=== PATIENT | male | born 1975 | race African-American/Black ===

== ENCOUNTER 2017-05-28 14:58 | Inpatient (IN) | payer OTHER ==
[2017-05-28 16:53] VITALS: BMI 33.2
--- NOTE | 2017-05-28 20:13 | HP ---
CIWA Score - CIWA Score Nausea/Vomitin Muscle Tremors: 2 Anxiety: 3 Agitation: 1-Slight > Activity Paroxysmal Sweats: 3 Orientation: 0-Oriented Tacttile Disturbances: 0-None Auditory Disturbances: 0-None Visual Disturbances: 2-Mild Sensitivity Headache: 0-None Present CIWA-Ar Total Score: 13 Admission ROS S - [facility] Chief Complaint: WITHDRAWAL SYMPTOMS Allergies/Adverse Reactions: Allergies Allergy/AdvReac Type Severity Reaction Status Date / Time No Known Allergies Allergy Verified 05/28/17 20:10 History of Present Illness: 42 Y.O. MAN WITH A HISTORY OF ALCOHOL DEPENDENCE IS HERE SEEKING DETOX. HE REPORTS HIS LAST ADMISSION TO DETOX WAS IN 2011 AT ANOTHER FACILITY BUT REPORTS HE LEFT AMA. DOES NOT HAVE A SIGNIFICANT PERIOD OF SOBRIETY. Exam Limitations: No Limitations - Ebola screening Have you traveled outside of the country in the last 21 days: No Have you been sick,other than usual withdrawal symptoms: No - Review of Systems Constitutional: Diaphoresis, Changes in sleep EENT: reports: No Symptoms Reported Respiratory: reports: Shortness of Breath Cardiac: reports: No Symptoms Reported GI: reports: Blood Streaked Bowels : reports: No Symptoms Reported Musculoskeletal: reports: No Symptoms Reported Integumentary: reports: No Symptoms Reported Neuro: reports: Tremors Endocrine: reports: No Symptoms Reported Hematology: reports: No Symptoms Reported Psychiatric: reports: Judgement Intact, Mood/Affect Appropiate, Orientated x3, Depressed Other Systems: Reviewed and Negative Patient History - Patient Medical History Hx Anemia: No Hx Asthma: No Hx Chronic Obstructive Pulmonary Disease (COPD): No Hx Cancer: No Hx Cardiac Disorders: No Hx Congestive Heart Failure: No Hx Hypertension: No Hx Hypercholesterolemia: No Hx Pacemaker: No HX Cerebrovascular Accident: No Hx Seizures: No Hx Dementia: No Hx Diabetes: No Hx Gastrointestinal Disorders: No Hx Liver Disease: No Hx Genitourinary Disorders: No Hx Sexually Transmitted Disorders: No Hx Renal Disease (ESRD): No Hx Thyroid Disease: No Hx Human Immunodeficiency Virus (HIV): No Hx Hepatitis C: No Hx Depression: Yes Hx Suicide Attempt: No Hx Bipolar Disorder: No Hx Schizophrenia: No - Patient Surgical History Past Surgical History: No - PPD History Previous Implant?: Yes Documented Results: Negative w/o proof PPD to be Administered?: Yes - Reproductive History Patient is a Female of Child Bearing Age (11 -55 yrs old): No - Smoking Cessation Smoking history: Current every day smoker Have you smoked in the past 12 months: Yes Aproximately how many cigarettes per day: 10 Hx Chewing Tobacco Use: No Initiated information on smoking cessation: Yes 'Breaking Loose' booklet given: 05/28/17 - Substance & Tx. History Hx Alcohol Use: Yes Hx Substance Use: Yes Substance Use Type: Alcohol, Marijuana Hx Substance Use Treatment: Yes (DETOX:2012) - Substances Abused Alcohol Route: Oral Frequency: Daily Amount used: 1-2 PINTS OF LIQUOR Age of first use: 13 Date of Last Use: 05/28/17 Family Disease History - Family Disease History Family Disease History: Diabetes: Mother (ETOH DEPENDENCE), Other: Mother Admission Physical Exam [facility] - Vital Signs Vital Signs: Vital Signs - 24 hr 05/28/17 16:50 Temperature 97.5 F L Pulse Rate 86 Respiratory 18 Rate Blood Pressure 146/82 - Physical General Appearance: Yes: Appropriately Dressed, Anxious HEENTM: Yes: Hearing grossly Normal, Normocephalic, Normal Voice Respiratory: Yes: Chest Non-Tender, Lungs Clear, Normal Breath Sounds, No Respiratory Distress, No Accessory Muscle Use Neck: Yes: No masses,lesions,Nodules, Trachea in good position Breast: Yes: Breast Exam Deferred Cardiology: Yes: Regular Rhythm, Regular Rate Abdominal: Yes: Normal Bowel Sounds, Non Tender, Flat Genitourinary: Yes: Other (NO COMPLAINTS REPORTED) Back: Yes: Normal Inspection Musculoskeletal: Yes: full range of Motion, Gait Steady, Pelvis Stable Extremities: Yes: Normal Inspection, Normal Range of Motion, Non-Tender Neurological: Yes: Fully Oriented, Alert, Motor Strength 5/5, Normal Mood/Affect , Normal Response Integumentary: Yes: Normal Color, Dry, Warm Lymphatic: Yes: Within Normal Limits - Diagnostic (1) Nicotine dependence Current Visit: Yes Status: Chronic (2) BPH (benign prostatic hyperplasia) Current Visit: Yes Status: Chronic (3) Alcohol dependence with uncomplicated withdrawal Current Visit: Yes Status: Chronic (4) Cannabis dependence Current Visit: Yes Status: Chronic Cleared for Admission [facility] - Detox or Rehab [facility] Level of Care: Medically Managed Detox Regimen/Protocol: Librium [facility] Breath Alcohol Content Breath Alcohol Content: 0 Urine Drug Screen - Results Drug Screen Negative: No Urine Drug Screen Results: THC-Marijuana
[2017-05-28] MEDS ORDERED: NICOTINE POLACRILEX 2 MG GUM BC PRN (20:23)
[2017-05-28] MEDS ORDERED: MAG HYDROX/AL HYDROX/SIMETH 30 ML UNIT-DOSE CUP PO PRN (20:23)
[2017-05-28] MEDS ORDERED: ACETAMINOPHEN 325 MG TABLET (FP) PO PRN (20:23)
[2017-05-28] MEDS ORDERED: P-EPHED 60MG/TRIPROLIDI 2.5MG TABLET PO PRN (20:23)
[2017-05-28] MEDS ORDERED: chlordiazePOXIDE HCL 25 MG CAPSULE PO ONE (20:23)
[2017-05-28] MEDS ORDERED: MAGNESIUM CITRATE 300 ML BOTTLE PO PRN (20:23)
[2017-05-28] MEDS ORDERED: chlordiazePOXIDE HCL 25 MG CAPSULE PO PRN (20:23)
[2017-05-28] MEDS ORDERED: IBUPROFEN 400 MG TABLET (FP) PO PRN (20:23)
[2017-05-28] MEDS ORDERED: LOPERAMIDE HCL 2 MG CAPSULE PO PRN (20:23)
[2017-05-28] MEDS ORDERED: MAGNESIUM HYDROX 2400MG/30ML ORAL SUSPENSION 30 ML CUP PO PRN (20:23)
[2017-05-28] MEDS ORDERED: MENTHOL/PHENOL 1 EACH UD MM PRN (20:23)
[2017-05-28] MEDS ORDERED: guaiFENesin/D-METHORPHAN HB 10 ML UNIT-DOSE CUPS PO PRN (20:23)
[2017-05-28] MEDS ORDERED: diphenhydrAMINE HCL 50 MG CAPSULE PO PRN (20:25)
[2017-05-28] MEDS: chlordiazePOXIDE HCL 25 MG CAPSULE PO SCH (21:59)
[2017-05-28] MEDS: THIAMINE HCL 100 MG TABLET (FP) PO SCH (21:59)
[2017-05-28] MEDS: hydrOXYzine PAMOATE 50 MG CAPSULE (FP) PO PRN (22:02)
[2017-05-29 05:05] LABS: URINE APPEARANCE CLOUDY; URINE BILIRUBIN NEGATIVE (NEGATIVE); URINE BLOOD NEGATIVE (NEGATIVE); URINE COLOR YELLOW; URINE GLUCOSE (UA) NEGATIVE (NEGATIVE); URINE KETONE NEGATIVE (NEGATIVE); URINE LEUK ESTERASE NEGATIVE (NEGATIVE); URINE NITRITE POSITIVE (NEGATIVE); URINE PROTEIN NEGATIVE (NEGATIVE); URINE UROBILINOGEN NEGATIVE mg/dL (0.2-1.0)
[2017-05-29 05:26] LABS: URINE BACTERIA RARE /hpf (NONE SEEN); URINE MUCUS FEW
[2017-05-29] MEDS: chlordiazePOXIDE HCL 25 MG CAPSULE PO SCH ×4 (05:37→22:15)
[2017-05-29 10:18] LABS: ALBUMIN 3.6 g/dl (3.4-5.0); ANION GAP 8 (8-16); BLOOD UREA NITROGEN 14 mg/dL (7-18); CALCIUM 8.8 mg/dL (8.5-10.1); CHLORIDE 106 mmol/L (98-107); CO2 29 mmol/L (21-32); GLUCOSE,RANDOM 91 mg/dL (74-106); POTASSIUM 3.7 mmol/L (3.5-5.1); SODIUM 143 mmol/L (136-145)
[2017-05-29 10:20] LABS: ALK PHOS 57 U/L (45-117); BILIRUBIN,TOTAL 0.4 mg/dL (0.2-1.0); CREATININE 1.1 mg/dL (0.7-1.3); SGOT/AST 33 U/L (15-37); SGPT/ALT 48 U/L (12-78); TOT PROT 6.8 g/dl (6.4-8.2)
[2017-05-29 10:34] LABS: HEMATOCRIT 47.2 % (35.4-49); HEMOGLOBIN 15.4 GM/dL (11.7-16.9); MCH 31.6 pg (25.7-33.7); MCHC 32.7 g/dl (32.0-35.9); MEAN CELL VOLUME 96.8 fl (80-96); MEAN PLT VOLUME 9.6 fl (7.5-11.1); PLATELET COUNT 148 K/MM3 (134-434); RBC 4.87 M/mm3 (4.00-5.60); RDW 14.8 % (11.9-15.9); WHITE BLOOD COUNT 4.6 K/mm3 (4.0-10.0)
[2017-05-29] MEDS: NICOTINE 14 MG/24 HOURS TOPICAL PATCH TD SCH (11:09)
[2017-05-29] MEDS: PRENATAL VITAMINS W/ FOLIC ACID TABLET (FP) PO SCH (11:09)
[2017-05-29] MEDS: LEVOFLOXACIN 500 MG TABLET (FP) PO SCH (11:10)
--- NOTE | 2017-05-29 13:43 | PN ---
[facility] CIWA - CIWA Score Nausea/Vomitin-Mild Nausea/No Vomiting Muscle Tremors: 2 Anxiety: 4-Mod. Anxious/Guarded Agitation: 4-Moderately Restless Paroxysmal Sweats: 3 Orientation: 0-Oriented Tacttile Disturbances: 1-Very Mild Itch/Numbness Auditory Disturbances: 0-None Visual Disturbances: 0-None Headache: 0-None Present CIWA-Ar Total Score: 15 BHS Progress Note (SOAP) Subjective: Stomach ache, anxious, nausea, sweating. Patient reports urgency, frequency and burning upon urination but not sure if he still have these symptoms due to his withdrawal symptoms. Objective: 05/29/17 13:33 Last Vital Signs Temp Pulse Resp BP Pulse Ox 99.0 F 85 19 131/88 05/29/17 10:15 05/29/17 10:15 05/29/17 10:15 05/29/17 10:15 Laboratory Tests 05/28/17 05/29/17 05/29/17 06:30 08:00 08:00 WBC 4.6 RBC 4.87 Hgb 15.4 Hct 47.2 MCV 96.8 H MCH 31.6 MCHC 32.7 RDW 14.8 Plt Count 148 MPV 9.6 Sodium 143 Potassium 3.7 Chloride 106 Carbon Dioxide 29 Anion Gap 8 BUN 14 Creatinine 1.1 Creat Clearance w eGFR > 60 Random Glucose 91 Calcium 8.8 Total Bilirubin 0.4 AST 33 ALT 48 Alkaline Phosphatase 57 Total Protein 6.8 Albumin 3.6 Urine Color Yellow Urine Appearance Cloudy Urine pH 7.0 Ur Specific [place] 1.024 Urine Protein Negative Urine Glucose (UA) Negative Urine Ketones Negative Urine Blood Negative Urine Nitrite Positive Urine Bilirubin Negative Urine Urobilinogen Negative Ur Leukocyte Esterase Negative Urine WBC (Auto) None Urine RBC (Auto) 2 Urine Bacteria Rare Urine Mucus Few RPR Titer 05/29/17 08:00 WBC RBC Hgb Hct MCV MCH MCHC RDW Plt Count MPV Sodium Potassium Chloride Carbon Dioxide Anion Gap BUN Creatinine Creat Clearance w eGFR Random Glucose Calcium Total Bilirubin AST ALT Alkaline Phosphatase Total Protein Albumin Urine Color Urine Appearance Urine pH Ur Specific [place] Urine Protein Urine Glucose (UA) Urine Ketones Urine Blood Urine Nitrite Urine Bilirubin Urine Urobilinogen Ur Leukocyte Esterase Urine WBC (Auto) Urine RBC (Auto) Urine Bacteria Urine Mucus RPR Titer Nonreactive Labs noted: UA shows positive nitrite Assessment: 05/29/17 13:34 Withdrawal symptoms Noted with UTI Plan: Continue detox Acute UTI: start levaquin 500mg PO daily x 10 days, encouraged to drink lots of water, follow up with PCP within 1-2 weeks post discharge for further evaluation and possible referral to urologist
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
--- NOTE | 2017-05-29 15:19 | EKG ---
Test Reason : Blood Pressure : / mmHG Vent. Rate : 072 BPM Atrial Rate : 072 BPM P-R Int : 150 ms QRS Dur : 086 ms QT Int : 404 ms P-R-T Axes : 051 057 031 degrees QTc Int : 442 ms NORMAL SINUS RHYTHM NONSPECIFIC ST ABNORMALITY ABNORMAL ECG NO PREVIOUS ECGS AVAILABLE Confirmed by Tanmay Stephenson MD ([id number]) on 05/29/2017 3:18:38 PM Referred By: Confirmed By:Tanmay Stephenson MD
[2017-05-29] MEDS: hydrOXYzine PAMOATE 50 MG CAPSULE (FP) PO PRN (22:15)
[2017-05-29] MEDS: THIAMINE HCL 100 MG TABLET (FP) PO SCH (22:17)
[2017-05-30] MEDS: chlordiazePOXIDE HCL 25 MG CAPSULE PO SCH ×3 (05:46→17:31)
[2017-05-30] MEDS: LEVOFLOXACIN 500 MG TABLET (FP) PO SCH (05:46)
[2017-05-30] MEDS: NICOTINE 14 MG/24 HOURS TOPICAL PATCH TD SCH (10:28)
[2017-05-30] MEDS: PRENATAL VITAMINS W/ FOLIC ACID TABLET (FP) PO SCH (10:28)
--- NOTE | 2017-05-30 13:31 | PN ---
[facility] CIWA - CIWA Score Nausea/Vomitin-No Nausea/No Vomiting Muscle Tremors: 4-Moderate,w/Arms Extend Anxiety: 4-Mod. Anxious/Guarded Agitation: 4-Moderately Restless Paroxysmal Sweats: 1-Minimal Palms Moist Orientation: 0-Oriented Tacttile Disturbances: 3-Moderate Itch/Numb/Burn Auditory Disturbances: 0-None Visual Disturbances: 0-None Headache: 0-None Present CIWA-Ar Total Score: 16 BHS Progress Note (SOAP) Subjective: ANXIETY,SWEATS,NAUSEA,MUSCLE ACHES. Objective: 05/30/17 13:30 Vital Signs Temperature 97.8 F 05/30/17 13:07 Pulse Rate 76 05/30/17 13:07 Respiratory Rate 18 05/30/17 13:07 Blood Pressure 148/96 05/30/17 13:07 O2 Sat by Pulse Oximetry (%) Laboratory Last Values WBC 4.6 K/mm3 (4.0-10.0) 05/29/17 08:00 RBC 4.87 M/mm3 (4.00-5.60) 05/29/17 08:00 Hgb 15.4 GM/dL (11.7-16.9) 05/29/17 08:00 Hct 47.2 % (35.4-49) 05/29/17 08:00 MCV 96.8 fl (80-96) H 05/29/17 08:00 MCH 31.6 pg (25.7-33.7) 05/29/17 08:00 MCHC 32.7 g/dl (32.0-35.9) 05/29/17 08:00 RDW 14.8 % (11.9-15.9) 05/29/17 08:00 Plt Count 148 K/MM3 (134-434) 05/29/17 08:00 MPV 9.6 fl (7.5-11.1) 05/29/17 08:00 Sodium 143 mmol/L (136-145) 05/29/17 08:00 Potassium 3.7 mmol/L (3.5-5.1) 05/29/17 08:00 Chloride 106 mmol/L (98-107) 05/29/17 08:00 Carbon Dioxide 29 mmol/L (21-32) 05/29/17 08:00 Anion Gap 8 (8-16) 05/29/17 08:00 BUN 14 mg/dL (7-18) 05/29/17 08:00 Creatinine 1.1 mg/dL (0.7-1.3) 05/29/17 08:00 Creat Clearance w eGFR > 60 (>60) 05/29/17 08:00 Random Glucose 91 mg/dL (74-106) 05/29/17 08:00 Calcium 8.8 mg/dL (8.5-10.1) 05/29/17 08:00 Total Bilirubin 0.4 mg/dL (0.2-1.0) 05/29/17 08:00 AST 33 U/L (15-37) 05/29/17 08:00 ALT 48 U/L (12-78) 05/29/17 08:00 Alkaline Phosphatase 57 U/L (45-117) 05/29/17 08:00 Total Protein 6.8 g/dl (6.4-8.2) 05/29/17 08:00 Albumin 3.6 g/dl (3.4-5.0) 05/29/17 08:00 Urine Color Yellow 05/28/17 06:30 Urine Appearance Cloudy 05/28/17 06:30 Urine pH 7.0 (5.0-8.0) 05/28/17 06:30 Ur Specific [place] 1.024 (1.001-1.035) 05/28/17 06:30 Urine Protein Negative (NEGATIVE) 05/28/17 06:30 Urine Glucose (UA) Negative (NEGATIVE) 05/28/17 06:30 Urine Ketones Negative (NEGATIVE) 05/28/17 06:30 Urine Blood Negative (NEGATIVE) 05/28/17 06:30 Urine Nitrite Positive (NEGATIVE) 05/28/17 06:30 Urine Bilirubin Negative (NEGATIVE) 05/28/17 06:30 Urine Urobilinogen Negative mg/dL (0.2-1.0) 05/28/17 06:30 Ur Leukocyte Esterase Negative (NEGATIVE) 05/28/17 06:30 Urine WBC (Auto) None /hpf (3-5) 05/28/17 06:30 Urine RBC (Auto) 2 /hpf (0-3) 05/28/17 06:30 Urine Bacteria Rare /hpf (NONE SEEN) 05/28/17 06:30 Urine Mucus Few 05/28/17 06:30 RPR Titer Nonreactive (NONREACTIVE) 05/29/17 08:00 Assessment: 05/30/17 13:31 WITHDRAWAL SX Plan: CONTINUE DETOX
[2017-05-30] MEDS: THIAMINE HCL 100 MG TABLET (FP) PO SCH (22:23)
[2017-05-30] MEDS: hydrOXYzine PAMOATE 50 MG CAPSULE (FP) PO PRN (22:23)
[2017-05-30] MEDS: chlordiazePOXIDE 5 MG CAPSULE PO SCH (22:23)
[2017-05-31] MEDS: chlordiazePOXIDE 5 MG CAPSULE PO SCH ×2 (05:38→10:40)
[2017-05-31] MEDS: LEVOFLOXACIN 500 MG TABLET (FP) PO SCH (05:40)
[2017-05-31] MEDS: NICOTINE 14 MG/24 HOURS TOPICAL PATCH TD SCH (10:40)
[2017-05-31] MEDS: PRENATAL VITAMINS W/ FOLIC ACID TABLET (FP) PO SCH (10:40)
--- NOTE | 2017-05-31 12:18 | PN ---
S Progress Note (SOAP) Subjective: DECREASED ANXIETY,SWEATS,BODY ACHES. Objective: 05/31/17 12:17 Vital Signs Temperature 98.2 F 05/31/17 09:27 Pulse Rate 84 05/31/17 09:27 Respiratory Rate 16 05/31/17 09:27 Blood Pressure 131/89 05/31/17 09:27 O2 Sat by Pulse Oximetry (%) Laboratory Last Values WBC 4.6 K/mm3 (4.0-10.0) 05/29/17 08:00 RBC 4.87 M/mm3 (4.00-5.60) 05/29/17 08:00 Hgb 15.4 GM/dL (11.7-16.9) 05/29/17 08:00 Hct 47.2 % (35.4-49) 05/29/17 08:00 MCV 96.8 fl (80-96) H 05/29/17 08:00 MCH 31.6 pg (25.7-33.7) 05/29/17 08:00 MCHC 32.7 g/dl (32.0-35.9) 05/29/17 08:00 RDW 14.8 % (11.9-15.9) 05/29/17 08:00 Plt Count 148 K/MM3 (134-434) 05/29/17 08:00 MPV 9.6 fl (7.5-11.1) 05/29/17 08:00 Sodium 143 mmol/L (136-145) 05/29/17 08:00 Potassium 3.7 mmol/L (3.5-5.1) 05/29/17 08:00 Chloride 106 mmol/L (98-107) 05/29/17 08:00 Carbon Dioxide 29 mmol/L (21-32) 05/29/17 08:00 Anion Gap 8 (8-16) 05/29/17 08:00 BUN 14 mg/dL (7-18) 05/29/17 08:00 Creatinine 1.1 mg/dL (0.7-1.3) 05/29/17 08:00 Creat Clearance w eGFR > 60 (>60) 05/29/17 08:00 Random Glucose 91 mg/dL (74-106) 05/29/17 08:00 Calcium 8.8 mg/dL (8.5-10.1) 05/29/17 08:00 Total Bilirubin 0.4 mg/dL (0.2-1.0) 05/29/17 08:00 AST 33 U/L (15-37) 05/29/17 08:00 ALT 48 U/L (12-78) 05/29/17 08:00 Alkaline Phosphatase 57 U/L (45-117) 05/29/17 08:00 Total Protein 6.8 g/dl (6.4-8.2) 05/29/17 08:00 Albumin 3.6 g/dl (3.4-5.0) 05/29/17 08:00 Urine Color Yellow 05/28/17 06:30 Urine Appearance Cloudy 05/28/17 06:30 Urine pH 7.0 (5.0-8.0) 05/28/17 06:30 Ur Specific [place] 1.024 (1.001-1.035) 05/28/17 06:30 Urine Protein Negative (NEGATIVE) 05/28/17 06:30 Urine Glucose (UA) Negative (NEGATIVE) 05/28/17 06:30 Urine Ketones Negative (NEGATIVE) 05/28/17 06:30 Urine Blood Negative (NEGATIVE) 05/28/17 06:30 Urine Nitrite Positive (NEGATIVE) 05/28/17 06:30 Urine Bilirubin Negative (NEGATIVE) 05/28/17 06:30 Urine Urobilinogen Negative mg/dL (0.2-1.0) 05/28/17 06:30 Ur Leukocyte Esterase Negative (NEGATIVE) 05/28/17 06:30 Urine WBC (Auto) None /hpf (3-5) 05/28/17 06:30 Urine RBC (Auto) 2 /hpf (0-3) 05/28/17 06:30 Urine Bacteria Rare /hpf (NONE SEEN) 05/28/17 06:30 Urine Mucus Few 05/28/17 06:30 RPR Titer Nonreactive (NONREACTIVE) 05/29/17 08:00 Assessment: 05/31/17 12:17 WITHDRAWAL SX Plan: CONTINUE DETOX
[2017-05-31] MEDS: chlordiazePOXIDE HCL 10 MG CAPSULE PO SCH ×2 (17:49→22:13)
[2017-05-31] MEDS: THIAMINE HCL 100 MG TABLET (FP) PO SCH (22:13)
[2017-05-31] MEDS: hydrOXYzine PAMOATE 50 MG CAPSULE (FP) PO PRN (22:15)
[2017-05-31] MEDS ORDERED: chlordiazePOXIDE HCL 10 MG CAPSULE PO SCH (23:00)
[2017-06-01] MEDS: LEVOFLOXACIN 500 MG TABLET (FP) PO SCH (05:28)
[2017-06-01] MEDS: chlordiazePOXIDE HCL 10 MG CAPSULE PO SCH ×2 (05:28→10:16)
[2017-06-01] MEDS: NICOTINE 14 MG/24 HOURS TOPICAL PATCH TD SCH (09:46)
[2017-06-01] MEDS: PRENATAL VITAMINS W/ FOLIC ACID TABLET (FP) PO SCH (09:46)
[2017-06-01 10:12] VITALS: BP 121/86; PULSE 94; TEMP 97.3
--- NOTE | 2017-06-01 10:45 | DS ---
[facility] Detox Discharge Summary Admission Date: 05/28/17 Discharge Date: 06/01/17 - History Present History: Alcohol Dependence, Cannabis Dependence Additional Comments: DETOX COMPLETED. REFERRED TO [facility] TODAY. Pertinent Past History: HX OF BPH - Physical Exam Results Vital Signs: Vital Signs Temperature 97.3 F L 06/01/17 10:11 Pulse Rate 94 H 06/01/17 10:11 Respiratory Rate 20 06/01/17 10:11 Blood Pressure 121/86 06/01/17 10:11 O2 Sat by Pulse Oximetry (%) Pertinent Admission Physical Exam Findings: WITHDRAWAL SX Laboratory Last Values WBC 4.6 K/mm3 (4.0-10.0) 05/29/17 08:00 RBC 4.87 M/mm3 (4.00-5.60) 05/29/17 08:00 Hgb 15.4 GM/dL (11.7-16.9) 05/29/17 08:00 Hct 47.2 % (35.4-49) 05/29/17 08:00 MCV 96.8 fl (80-96) H 05/29/17 08:00 MCH 31.6 pg (25.7-33.7) 05/29/17 08:00 MCHC 32.7 g/dl (32.0-35.9) 05/29/17 08:00 RDW 14.8 % (11.9-15.9) 05/29/17 08:00 Plt Count 148 K/MM3 (134-434) 05/29/17 08:00 MPV 9.6 fl (7.5-11.1) 05/29/17 08:00 Sodium 143 mmol/L (136-145) 05/29/17 08:00 Potassium 3.7 mmol/L (3.5-5.1) 05/29/17 08:00 Chloride 106 mmol/L (98-107) 05/29/17 08:00 Carbon Dioxide 29 mmol/L (21-32) 05/29/17 08:00 Anion Gap 8 (8-16) 05/29/17 08:00 BUN 14 mg/dL (7-18) 05/29/17 08:00 Creatinine 1.1 mg/dL (0.7-1.3) 05/29/17 08:00 Creat Clearance w eGFR > 60 (>60) 05/29/17 08:00 Random Glucose 91 mg/dL (74-106) 05/29/17 08:00 Calcium 8.8 mg/dL (8.5-10.1) 05/29/17 08:00 Total Bilirubin 0.4 mg/dL (0.2-1.0) 05/29/17 08:00 AST 33 U/L (15-37) 05/29/17 08:00 ALT 48 U/L (12-78) 05/29/17 08:00 Alkaline Phosphatase 57 U/L (45-117) 05/29/17 08:00 Total Protein 6.8 g/dl (6.4-8.2) 05/29/17 08:00 Albumin 3.6 g/dl (3.4-5.0) 05/29/17 08:00 Urine Color Yellow 05/28/17 06:30 Urine Appearance Cloudy 05/28/17 06:30 Urine pH 7.0 (5.0-8.0) 05/28/17 06:30 Ur Specific [place] 1.024 (1.001-1.035) 05/28/17 06:30 Urine Protein Negative (NEGATIVE) 05/28/17 06:30 Urine Glucose (UA) Negative (NEGATIVE) 05/28/17 06:30 Urine Ketones Negative (NEGATIVE) 05/28/17 06:30 Urine Blood Negative (NEGATIVE) 05/28/17 06:30 Urine Nitrite Positive (NEGATIVE) 05/28/17 06:30 Urine Bilirubin Negative (NEGATIVE) 05/28/17 06:30 Urine Urobilinogen Negative mg/dL (0.2-1.0) 05/28/17 06:30 Ur Leukocyte Esterase Negative (NEGATIVE) 05/28/17 06:30 Urine WBC (Auto) None /hpf (3-5) 05/28/17 06:30 Urine RBC (Auto) 2 /hpf (0-3) 05/28/17 06:30 Urine Bacteria Rare /hpf (NONE SEEN) 05/28/17 06:30 Urine Mucus Few 05/28/17 06:30 RPR Titer Nonreactive (NONREACTIVE) 05/29/17 08:00 - Treatment Hospital Course: Detox Protocol Followed, Detoxed Safely, Responded well, Discharged Condition Good, Rehab Referral Accepted ([facility]) Patient has Accepted a Rehab Referral to: [address] - Medication Discharge Medications: Ambulatory Orders NK [No Known Home Medication] 05/28/17 - Diagnosis (1) Alcohol dependence with uncomplicated withdrawal Current Visit: Yes Status: Acute (2) Cannabis dependence Current Visit: Yes Status: Acute (3) Nicotine dependence Current Visit: Yes Status: Acute Qualifiers: Nicotine product type: cigarettes Substance use status: in withdrawal Qualified Code(s): F17.213 - Nicotine dependence, cigarettes, with withdrawal (4) BPH (benign prostatic hyperplasia) Current Visit: Yes Status: Chronic Qualifiers: Lower urinary tract symptom presence: unspecified whether lower urinary tract symptoms present Qualified Code(s): N40.0 - Benign prostatic hyperplasia without lower urinary tract symptoms - AMA Did Patient Leave Against Medical Advice: No
== END 2017-06-01 11:45 | disposition other institution (70) | DRG 775 ==
LOC: YASAS 14:58 → Y3N 21:02
PROVIDERS: ADMIT Internal Medicine; ATTEND Internal Medicine
PROC: HZ2ZZZZ Detoxification Services for Substance Abuse Treatment (ICD-10-PCS; principal; 2017-05-28)
DX: F10.230 Alcohol dependence with withdrawal, uncomplicated (principal); F12.20 Cannabis dependence, uncomplicated; F17.210 Nicotine dependence, cigarettes, uncomplicated; F32.9 Major depressive disorder, single episode, unspecified; N40.0 Benign prostatic hyperplasia without lower urinary tract symptoms
CPT/HCPCS: 36415; 80053; 81003; 81015; 85027; 86593; 87086; 93005; 93010

== ENCOUNTER 2017-06-01 12:31 | Inpatient (IN) | payer OTHER ==
[2017-06-01] MEDS ORDERED: PNEUMOC 13-VAL CONJ-DIP CRM/PF 0.5 ML DISP.SYRIN IM ONE (13:05)
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
[2017-06-01] MEDS ORDERED: LOPERAMIDE HCL 2 MG CAPSULE PO PRN (16:06)
[2017-06-01] MEDS ORDERED: MAGNESIUM HYDROX 2400MG/30ML ORAL SUSPENSION 30 ML CUP PO PRN (16:06)
[2017-06-01] MEDS ORDERED: MAG HYDROX/AL HYDROX/SIMETH 30 ML UNIT-DOSE CUP PO PRN (16:06)
[2017-06-01] MEDS ORDERED: hydrOXYzine PAMOATE 50 MG CAPSULE (FP) PO PRN (16:06)
[2017-06-01] MEDS ORDERED: P-EPHED 60MG/TRIPROLIDI 2.5MG TABLET PO PRN (16:06)
[2017-06-01] MEDS ORDERED: MENTHOL/PHENOL 1 EACH UD MM PRN (16:06)
[2017-06-01] MEDS ORDERED: ACETAMINOPHEN 325 MG TABLET (FP) PO PRN (16:06)
[2017-06-01] MEDS ORDERED: guaiFENesin/D-METHORPHAN HB 10 ML UNIT-DOSE CUPS PO PRN (16:06)
[2017-06-01] MEDS ORDERED: MAGNESIUM CITRATE 300 ML BOTTLE PO PRN (16:06)
[2017-06-01] MEDS ORDERED: IBUPROFEN 400 MG TABLET (FP) PO PRN (16:06)
[2017-06-01] MEDS ORDERED: NICOTINE POLACRILEX 2 MG GUM BUC PRN (16:06)
--- NOTE | 2017-06-01 16:08 | HP ---
[facility] Assess/Revision - Admission History Admitted to Rehab from: [facility] Date of Admission to Rehab: 06/01/17 - Findings Detox History & Physical reviewed: Yes Concur with findings: Yes Comments/Additional Findings: ADMIT TO REHAB
[2017-06-01] MEDS: THIAMINE HCL 100 MG TABLET (FP) PO SCH (21:20)
[2017-06-01] MEDS: hydrOXYzine PAMOATE 50 MG CAPSULE (FP) PO PRN (21:20)
[2017-06-02] MEDS: PRENATAL VITAMINS W/ FOLIC ACID TABLET (FP) PO SCH (09:59)
[2017-06-02] MEDS: NICOTINE 21 MG/24 HOURS TOPICAL PATCH TD SCH (10:00)
[2017-06-02] MEDS: hydrOXYzine PAMOATE 50 MG CAPSULE (FP) PO PRN ×2 (10:05→21:24)
[2017-06-02] MEDS ORDERED: PNEUMOCOCCAL 23 VACCINE 0.5 ML VIAL IM ONE (12:00)
[2017-06-02] MEDS: LEVOFLOXACIN 500 MG TABLET (FP) PO SCH (12:45)
--- NOTE | 2017-06-02 16:05 | PN ---
S Progress Note Note: Vistaril has been discontinued due to possible drug interaction with levaquin. Vistaril can resume after antibiotic completion.
[2017-06-02] MEDS: THIAMINE HCL 100 MG TABLET (FP) PO SCH (21:24)
[2017-06-03] MEDS: LEVOFLOXACIN 500 MG TABLET (FP) PO SCH (06:29)
[2017-06-03] MEDS: PRENATAL VITAMINS W/ FOLIC ACID TABLET (FP) PO SCH (09:49)
[2017-06-03] MEDS: NICOTINE 21 MG/24 HOURS TOPICAL PATCH TD SCH (09:49)
[2017-06-03] MEDS: THIAMINE HCL 100 MG TABLET (FP) PO SCH (21:20)
[2017-06-03] MEDS: hydrOXYzine PAMOATE 50 MG CAPSULE (FP) PO PRN (21:20)
[2017-06-04] MEDS: LEVOFLOXACIN 500 MG TABLET (FP) PO SCH (06:14)
[2017-06-04] MEDS: NICOTINE 21 MG/24 HOURS TOPICAL PATCH TD SCH (09:41)
[2017-06-04] MEDS: PRENATAL VITAMINS W/ FOLIC ACID TABLET (FP) PO SCH (09:41)
[2017-06-05] MEDS: LEVOFLOXACIN 500 MG TABLET (FP) PO SCH (06:06)
[2017-06-05] MEDS: PRENATAL VITAMINS W/ FOLIC ACID TABLET (FP) PO SCH (10:06)
[2017-06-05] MEDS: NICOTINE 21 MG/24 HOURS TOPICAL PATCH TD SCH (10:07)
[2017-06-05] MEDS: TOLNAFTATE 1% CREAM 15 GM TUBE TP SCH ×3 (10:07→21:42)
[2017-06-05] MEDS: hydrOXYzine PAMOATE 50 MG CAPSULE (FP) PO PRN ×2 (12:00→21:43)
[2017-06-05] MEDS: THIAMINE HCL 100 MG TABLET (FP) PO SCH ×2 (18:40→21:43)
[2017-06-06] MEDS: LEVOFLOXACIN 500 MG TABLET (FP) PO SCH (06:19)
[2017-06-06] MEDS: TOLNAFTATE 1% CREAM 15 GM TUBE TP SCH (09:53)
[2017-06-06] MEDS: NICOTINE 21 MG/24 HOURS TOPICAL PATCH TD SCH (09:53)
[2017-06-06] MEDS: PRENATAL VITAMINS W/ FOLIC ACID TABLET (FP) PO SCH (09:53)
--- NOTE | 2017-06-06 13:42 | PN ---
[facility] Progress Note (SOAP) Subjective: c/o hematuria , h/o bph Objective: 06/06/17 13:39 pt 06/06/17 13:42 see labs Assessment: 06/06/17 13:39 h/o bph , started flomax in [facility] ,stopped flomax when he began drinking. Emile now resume 06/06/17 13:40 Plan: cont levofloxin start flomax 0.4 mg repeat u/a hold vistaril
[2017-06-06] MEDS: hydrOXYzine PAMOATE 50 MG CAPSULE (FP) PO PRN (22:11)
[2017-06-06] MEDS: THIAMINE HCL 100 MG TABLET (FP) PO SCH (22:11)
[2017-06-07] MEDS: TOLNAFTATE 1% CREAM 15 GM TUBE TP SCH ×3 (01:17→22:58)
[2017-06-07] MEDS: LEVOFLOXACIN 500 MG TABLET (FP) PO SCH (06:18)
[2017-06-07] MEDS: TAMSULOSIN HCL 0.4 MG CAP.ER.24H (FP) PO SCH (09:08)
[2017-06-07] MEDS: NICOTINE 21 MG/24 HOURS TOPICAL PATCH TD SCH (10:09)
[2017-06-07] MEDS: PRENATAL VITAMINS W/ FOLIC ACID TABLET (FP) PO SCH (10:09)
[2017-06-07 10:37] LABS: URINE APPEARANCE CLEAR; URINE BILIRUBIN NEGATIVE (NEGATIVE); URINE BLOOD NEGATIVE (NEGATIVE); URINE COLOR STRAW; URINE GLUCOSE (UA) NEGATIVE (NEGATIVE); URINE KETONE NEGATIVE (NEGATIVE); URINE LEUK ESTERASE NEGATIVE (NEGATIVE); URINE NITRITE NEGATIVE (NEGATIVE); URINE PROTEIN NEGATIVE (NEGATIVE); URINE UROBILINOGEN NEGATIVE mg/dL (0.2-1.0)
[2017-06-07] MEDS: hydrOXYzine PAMOATE 50 MG CAPSULE (FP) PO PRN ×2 (16:52→22:07)
[2017-06-07] MEDS: THIAMINE HCL 100 MG TABLET (FP) PO SCH (22:05)
[2017-06-08] MEDS: LEVOFLOXACIN 500 MG TABLET (FP) PO SCH (06:37)
[2017-06-08] MEDS: TAMSULOSIN HCL 0.4 MG CAP.ER.24H (FP) PO SCH (08:44)
[2017-06-08] MEDS: PRENATAL VITAMINS W/ FOLIC ACID TABLET (FP) PO SCH (10:19)
[2017-06-08] MEDS: NICOTINE 21 MG/24 HOURS TOPICAL PATCH TD SCH (10:19)
[2017-06-08] MEDS: TOLNAFTATE 1% CREAM 15 GM TUBE TP SCH ×2 (10:19→21:50)
[2017-06-08] MEDS: hydrOXYzine PAMOATE 50 MG CAPSULE (FP) PO PRN (21:50)
[2017-06-08] MEDS: THIAMINE HCL 100 MG TABLET (FP) PO SCH (21:50)
[2017-06-09] MEDS: LEVOFLOXACIN 500 MG TABLET (FP) PO SCH (06:10)
[2017-06-09] MEDS: TAMSULOSIN HCL 0.4 MG CAP.ER.24H (FP) PO SCH (08:27)
[2017-06-09] MEDS: PRENATAL VITAMINS W/ FOLIC ACID TABLET (FP) PO SCH (10:08)
[2017-06-09] MEDS: TOLNAFTATE 1% CREAM 15 GM TUBE TP SCH ×2 (10:08→21:32)
[2017-06-09] MEDS: NICOTINE 21 MG/24 HOURS TOPICAL PATCH TD SCH (10:08)
[2017-06-09] MEDS: THIAMINE HCL 100 MG TABLET (FP) PO SCH (21:32)
[2017-06-09] MEDS: hydrOXYzine PAMOATE 50 MG CAPSULE (FP) PO PRN (21:32)
[2017-06-10] MEDS: TAMSULOSIN HCL 0.4 MG CAP.ER.24H (FP) PO SCH (07:57)
[2017-06-10] MEDS: TOLNAFTATE 1% CREAM 15 GM TUBE TP SCH ×2 (10:00→21:58)
[2017-06-10] MEDS: PRENATAL VITAMINS W/ FOLIC ACID TABLET (FP) PO SCH (10:00)
[2017-06-10] MEDS: NICOTINE 21 MG/24 HOURS TOPICAL PATCH TD SCH (10:00)
[2017-06-10] MEDS: THIAMINE HCL 100 MG TABLET (FP) PO SCH (21:57)
[2017-06-10] MEDS: hydrOXYzine PAMOATE 50 MG CAPSULE (FP) PO PRN (21:57)
[2017-06-11] MEDS: TAMSULOSIN HCL 0.4 MG CAP.ER.24H (FP) PO SCH (06:05)
[2017-06-11] MEDS: TOLNAFTATE 1% CREAM 15 GM TUBE TP SCH ×2 (09:50→21:55)
[2017-06-11] MEDS: NICOTINE 21 MG/24 HOURS TOPICAL PATCH TD SCH (09:50)
[2017-06-11] MEDS: PRENATAL VITAMINS W/ FOLIC ACID TABLET (FP) PO SCH (09:50)
[2017-06-11] MEDS: THIAMINE HCL 100 MG TABLET (FP) PO SCH (21:54)
[2017-06-11] MEDS: hydrOXYzine PAMOATE 50 MG CAPSULE (FP) PO PRN (21:54)
[2017-06-12] MEDS: TAMSULOSIN HCL 0.4 MG CAP.ER.24H (FP) PO SCH (06:24)
--- NOTE | 2017-06-12 09:47 | PN ---
Psychiatric Progress Note Vital Signs: Vital Signs Period Temp Pulse Resp BP Sys/Deleon Pulse Ox Last 24 Hr 97.4 F 82 18-20 109/74 Date of Session: 06/12/17 Chief Complaint:: Insomnia HPI: Patient addressing Alcohol and Cannabis Dependence comorbid with Nicotine Dependence, Substance-induced Anxiety Disorder and Substance-induced Sleep Disorder ROS: Start Belsomra 10 mg po HS prn for insomnia Current Medications: Active Medications Generic Name Dose Route Start Last Admin Trade Name Freq PRN Reason Stop Dose Admin Acetaminophen 650 mg 06/01/17 16:06 Tylenol - PO Q4H PRN FEVER Al Hydroxide/Mg Hydroxide 30 ml 06/01/17 16:06 Mylanta Oral Suspension - PO Q6H PRN DYSPEPSIA Eucalyptus/Menthol/Phenol/Sorbitol 1 each 06/01/17 16:06 Cepastat Lozenge - MM Q4H PRN SORE THROAT Guaifenesin 10 ml 06/01/17 16:06 Robitussin Dm - PO Q6H PRN COUGH Hydroxyzine Pamoate 50 mg 06/01/17 13:57 06/11/17 21:54 Vistaril - PO 50 mg Q4H PRN Administration ANXIETY Ibuprofen 400 mg 06/01/17 16:06 Motrin - PO Q6H PRN Pain Level 4-6 Loperamide HCl 4 mg 06/01/17 16:06 Imodium - PO Q6H PRN DIARRHEA Magnesium Citrate 300 ml 06/01/17 16:06 Citroma - PO Q48H PRN CONSTIPATION Magnesium Hydroxide 30 ml 06/01/17 16:06 Milk Of Magnesia - PO DAILY PRN CONSTIPATION Nicotine 21 mg 06/02/17 10:00 06/11/17 09:50 Nicoderm Patch - TD Not Given DAILY TIAN Nicotine Polacrilex 2 mg 06/01/17 16:06 Nicorette Gum - BUC Q2H PRN NICOTINE REPLACEMENT RX Multivit/Folic Acid/Iron 1 tab 06/02/17 10:00 06/11/17 09:50 Vitamins (Sjr) - PO 1 tab DAILY TIAN Administration Pseudoephedrine/Triprolidine 1 combo 06/01/17 16:06 Actifed - PO TID PRN NASAL CONGESTION Tamsulosin HCl 0.4 mg 06/10/17 07:30 06/12/17 06:24 Flomax - PO 0.4 mg DAILY@0600 TIAN Administration Thiamine HCl 100 mg 06/01/17 22:00 06/11/17 21:54 Vitamin B1 - PO 100 mg HS TIAN Administration Tolnaftate 1 applic 06/04/17 22:00 06/11/17 21:55 Tinactin 1% Cream - TP 1 applic BID TIAN Administration Current Side Effect: No Lab tests ordered: Yes Lab tests reviewed: Yes Provider note:: Patient reports experiencing difficulty to sleep. Told keno writer/runner that he has been sleeping poorly despite taking Vistaril 50 mg at bedtime. Requests to try another medication. Hypnotic properties as well as adverse- effects of Belsomra discussed with patient and he agreed to try it Total face to face time:: 15 Mental Status Exam - Mental Status Exam Alert and Oriented to: Time, Place, Person Cognitive Function: Fair Patient Appearance: Well Groomed Mood: Hopeful, Euthymic Affect: Appropriate Patient Behavior: Cooperative Speech Pattern: Clear Voice Loudness: Normal Thought Process: Intact, Goal Oriented Thought Disorder: Not Present Hallucinations: Denies Suicidal Ideation: Denies Homicidal Ideation: Denies Insight/Judgement: Fair Sleep: Poorly Appetite: Good Muscle strength/Tone: Normal Gait/Station: Normal Psychiatric Treatment Plan - Problem List (1) Alcohol dependence Current Visit: Yes (2) Cannabis dependence Current Visit: No (3) Nicotine dependence Current Visit: No Qualifiers: Nicotine product type: cigarettes Substance use status: in withdrawal Qualified Code(s): F17.213 - Nicotine dependence, cigarettes, with withdrawal (4) Substance-induced anxiety disorder Current Visit: Yes (5) Substance-induced sleep disorder Current Visit: Yes (6) BPH (benign prostatic hyperplasia) Current Visit: No Qualifiers: Lower urinary tract symptom presence: unspecified whether lower urinary tract symptoms present Qualified Code(s): N40.0 - Benign prostatic hyperplasia without lower urinary tract symptoms Initial treatment plan: 1) Start Belsomra 10 mg po HS prn for insomnia. 2) Monitor progress
[2017-06-12] MEDS: PRENATAL VITAMINS W/ FOLIC ACID TABLET (FP) PO SCH (10:07)
[2017-06-12] MEDS: NICOTINE 21 MG/24 HOURS TOPICAL PATCH TD SCH (10:07)
[2017-06-12] MEDS: TOLNAFTATE 1% CREAM 15 GM TUBE TP SCH ×2 (10:07→22:08)
[2017-06-12] MEDS: THIAMINE HCL 100 MG TABLET (FP) PO SCH (22:07)
[2017-06-12] MEDS: SUVOREXANT 10 MG TABLET PO PRN (22:08)
[2017-06-13] MEDS: TAMSULOSIN HCL 0.4 MG CAP.ER.24H (FP) PO SCH (06:15)
--- NOTE | 2017-06-13 06:38 | PN ---
Psychiatric Progress Note Vital Signs: Vital Signs Period Temp Pulse Resp BP Sys/Deleon Pulse Ox Last 24 Hr 97.4 F 82 18-20 109/74 Date of Session: 06/13/17 Chief Complaint:: Discharge Note HPI: Patient addressing Alcohol and Cannabis Dependence comorbid with Nicotine Dependence, Substance-induced Anxiety Disorder and Substance-induced Sleep Disorder ROS: BPH Current Medications: Active Medications Generic Name Dose Route Start Last Admin Trade Name Freq PRN Reason Stop Dose Admin Acetaminophen 650 mg 06/01/17 16:06 Tylenol - PO Q4H PRN FEVER Al Hydroxide/Mg Hydroxide 30 ml 06/01/17 16:06 Mylanta Oral Suspension - PO Q6H PRN DYSPEPSIA Eucalyptus/Menthol/Phenol/Sorbitol 1 each 06/01/17 16:06 Cepastat Lozenge - MM Q4H PRN SORE THROAT Guaifenesin 10 ml 06/01/17 16:06 Robitussin Dm - PO Q6H PRN COUGH Hydroxyzine Pamoate 50 mg 06/01/17 13:57 06/11/17 21:54 Vistaril - PO 50 mg Q4H PRN Administration ANXIETY Ibuprofen 400 mg 06/01/17 16:06 Motrin - PO Q6H PRN Pain Level 4-6 Loperamide HCl 4 mg 06/01/17 16:06 Imodium - PO Q6H PRN DIARRHEA Magnesium Citrate 300 ml 06/01/17 16:06 Citroma - PO Q48H PRN CONSTIPATION Magnesium Hydroxide 30 ml 06/01/17 16:06 Milk Of Magnesia - PO DAILY PRN CONSTIPATION Nicotine 21 mg 06/02/17 10:00 06/12/17 10:07 Nicoderm Patch - TD Not Given DAILY TIAN Nicotine Polacrilex 2 mg 06/01/17 16:06 Nicorette Gum - BUC Q2H PRN NICOTINE REPLACEMENT RX Multivit/Folic Acid/Iron 1 tab 06/02/17 10:00 06/12/17 10:07 Vitamins (Sjr) - PO 1 tab DAILY TIAN Administration Pseudoephedrine/Triprolidine 1 combo 06/01/17 16:06 Actifed - PO TID PRN NASAL CONGESTION Tamsulosin HCl 0.4 mg 06/10/17 07:30 06/13/17 06:15 Flomax - PO 0.4 mg DAILY@0600 TIAN Administration Thiamine HCl 100 mg 06/01/17 22:00 06/12/17 22:07 Vitamin B1 - PO 100 mg HS TIAN Administration Tolnaftate 1 applic 06/04/17 22:00 06/12/17 22:08 Tinactin 1% Cream - TP Not Given BID TIAN Current Side Effect: No Lab tests ordered: Yes Lab tests reviewed: Yes Provider note:: Patient will complete this program on 06/14/17. He has met his treatment goals and will continue to address his issues in outpatient [place] [facility] [place] He responded well to Belsomra prn for insomnia and Vistaril prn for anxiety. He is stable for discharge on 06/14/17 Total face to face time:: 35 Mental Status Exam - Mental Status Exam Alert and Oriented to: Time, Place, Person Cognitive Function: Fair Patient Appearance: Well Groomed Mood: Hopeful, Euthymic Affect: Appropriate Patient Behavior: Cooperative Speech Pattern: Clear Voice Loudness: Normal Thought Process: Intact, Goal Oriented Thought Disorder: Not Present Hallucinations: Denies Suicidal Ideation: Denies Homicidal Ideation: Denies Insight/Judgement: Fair Sleep: Fair Appetite: Good Muscle strength/Tone: Normal Gait/Station: Normal Psychiatric Treatment Plan - Problem List (1) Alcohol dependence Current Visit: Yes (2) Cannabis dependence Current Visit: No (3) Nicotine dependence Current Visit: No Qualifiers: Nicotine product type: cigarettes Substance use status: in withdrawal Qualified Code(s): F17.213 - Nicotine dependence, cigarettes, with withdrawal (4) Substance-induced anxiety disorder Current Visit: Yes (5) Substance-induced sleep disorder Current Visit: Yes (6) BPH (benign prostatic hyperplasia) Current Visit: No Qualifiers: Lower urinary tract symptom presence: unspecified whether lower urinary tract symptoms present Qualified Code(s): N40.0 - Benign prostatic hyperplasia without lower urinary tract symptoms Initial treatment plan: Patient will be discharged tomorrow and referred to the [facility] [place] treatment
[2017-06-13] MEDS: PRENATAL VITAMINS W/ FOLIC ACID TABLET (FP) PO SCH (10:06)
[2017-06-13] MEDS: NICOTINE 21 MG/24 HOURS TOPICAL PATCH TD SCH (10:07)
[2017-06-13] MEDS: TOLNAFTATE 1% CREAM 15 GM TUBE TP SCH ×2 (10:07→21:42)
[2017-06-13] MEDS: THIAMINE HCL 100 MG TABLET (FP) PO SCH (21:40)
[2017-06-13] MEDS: SUVOREXANT 10 MG TABLET PO PRN (21:41)
[2017-06-14] MEDS: TAMSULOSIN HCL 0.4 MG CAP.ER.24H (FP) PO SCH (06:19)
[2017-06-14] MEDS: PRENATAL VITAMINS W/ FOLIC ACID TABLET (FP) PO SCH (10:00)
[2017-06-14] MEDS: TOLNAFTATE 1% CREAM 15 GM TUBE TP SCH ×2 (10:01→22:18)
[2017-06-14] MEDS: NICOTINE 21 MG/24 HOURS TOPICAL PATCH TD SCH (10:01)
--- NOTE | 2017-06-14 10:49 | PN ---
Psychiatric Progress Note Vital Signs: Vital Signs Period Temp Pulse Resp BP Sys/Deleon Pulse Ox Last 24 Hr 98.0 F 84 18-20 126/73 Date of Session: 06/14/17 Chief Complaint:: Discharge Note HPI: Patient addressing Alcohol and Cannabis Dependence comorbid with Nicotine Dependence, Substance-induced Anxiety Disorder and Substance-induced Sleep Disorder ROS: BPH Current Medications: Active Medications Generic Name Dose Route Start Last Admin Trade Name Freq PRN Reason Stop Dose Admin Acetaminophen 650 mg 06/01/17 16:06 Tylenol - PO Q4H PRN FEVER Al Hydroxide/Mg Hydroxide 30 ml 06/01/17 16:06 Mylanta Oral Suspension - PO Q6H PRN DYSPEPSIA Eucalyptus/Menthol/Phenol/Sorbitol 1 each 06/01/17 16:06 Cepastat Lozenge - MM Q4H PRN SORE THROAT Guaifenesin 10 ml 06/01/17 16:06 Robitussin Dm - PO Q6H PRN COUGH Hydroxyzine Pamoate 50 mg 06/01/17 13:57 06/11/17 21:54 Vistaril - PO 50 mg Q4H PRN Administration ANXIETY Ibuprofen 400 mg 06/01/17 16:06 Motrin - PO Q6H PRN Pain Level 4-6 Loperamide HCl 4 mg 06/01/17 16:06 Imodium - PO Q6H PRN DIARRHEA Magnesium Citrate 300 ml 06/01/17 16:06 Citroma - PO Q48H PRN CONSTIPATION Magnesium Hydroxide 30 ml 06/01/17 16:06 Milk Of Magnesia - PO DAILY PRN CONSTIPATION Nicotine 21 mg 06/02/17 10:00 06/14/17 10:01 Nicoderm Patch - TD Not Given DAILY TIAN Nicotine Polacrilex 2 mg 06/01/17 16:06 Nicorette Gum - BUC Q2H PRN NICOTINE REPLACEMENT RX Multivit/Folic Acid/Iron 1 tab 06/02/17 10:00 06/14/17 10:00 Vitamins (Sjr) - PO 1 tab DAILY TIAN Administration Pseudoephedrine/Triprolidine 1 combo 06/01/17 16:06 Actifed - PO TID PRN NASAL CONGESTION Tamsulosin HCl 0.4 mg 06/10/17 07:30 06/14/17 06:19 Flomax - PO 0.4 mg DAILY@0600 TIAN Administration Thiamine HCl 100 mg 06/01/17 22:00 06/13/17 21:40 Vitamin B1 - PO 100 mg HS TIAN Administration Tolnaftate 1 applic 06/04/17 22:00 06/14/17 10:01 Tinactin 1% Cream - TP Not Given BID TIAN Current Side Effect: No Lab tests ordered: Yes Lab tests reviewed: Yes Provider note:: Patient will complete this program on 06/15/17. He has met his treatment goals and will continue to address his issues in outpatient treatment at the [facility] [place]. Told Venetian Blind Cleaner that from his participation in this program, he has learned to identify his triggers and healthy ways to manage them.He responded well to Belsomra prn for insomnia and Vistaril prn for anxiety. He is stable for discharge on 06/15/17 Total face to face time:: 35 Mental Status Exam - Mental Status Exam Alert and Oriented to: Time, Place, Person Cognitive Function: Fair Patient Appearance: Well Groomed Mood: Hopeful, Euthymic Affect: Appropriate Patient Behavior: Cooperative Speech Pattern: Clear Voice Loudness: Normal, Limited Variation Thought Process: Intact Thought Disorder: Not Present Hallucinations: Denies Suicidal Ideation: Denies Homicidal Ideation: Denies Insight/Judgement: Fair Sleep: Fair Appetite: Good Muscle strength/Tone: Normal Gait/Station: Normal Psychiatric Treatment Plan - Problem List (1) Alcohol dependence Current Visit: Yes (2) Cannabis dependence Current Visit: No (3) Nicotine dependence Current Visit: No Qualifiers: Nicotine product type: cigarettes Substance use status: in withdrawal Qualified Code(s): F17.213 - Nicotine dependence, cigarettes, with withdrawal (4) Substance-induced anxiety disorder Current Visit: Yes (5) Substance-induced sleep disorder Current Visit: Yes (6) BPH (benign prostatic hyperplasia) Current Visit: No Qualifiers: Lower urinary tract symptom presence: unspecified whether lower urinary tract symptoms present Qualified Code(s): N40.0 - Benign prostatic hyperplasia without lower urinary tract symptoms Initial treatment plan: Patient will be discharged tomorrow and referred to the [facility] [place] for [place]
[2017-06-14] MEDS: THIAMINE HCL 100 MG TABLET (FP) PO SCH (21:41)
[2017-06-14] MEDS: SUVOREXANT 10 MG TABLET PO PRN (21:41)
[2017-06-15] MEDS: TAMSULOSIN HCL 0.4 MG CAP.ER.24H (FP) PO SCH (05:59)
[2017-06-15 06:57] VITALS: BP 132/85; PULSE 93; TEMP 98.1
== END 2017-06-15 09:35 | disposition home or self-care (01) | DRG 772 ==
LOC: YASAS 12:31 → Y3W 12:32
PROVIDERS: ADMIT Psychiatry & Neurology Psychiatry; ATTEND Psychiatry & Neurology Psychiatry
PROC: HZ42ZZZ Group Counseling for Substance Abuse Treatment, Cognitive-Behavioral (ICD-10-PCS; principal; 2017-06-01)
DX: F12.20 Cannabis dependence, uncomplicated (principal); F17.210 Nicotine dependence, cigarettes, uncomplicated; F19.24 Other psychoactive substance dependence with psychoactive substance-induced mood disorder; F19.282 Other psychoactive substance dependence with psychoactive substance-induced sleep disorder; N40.0 Benign prostatic hyperplasia without lower urinary tract symptoms
CPT/HCPCS: 81003; 90732; G0009